=== PATIENT | female | born 1990 | race African-American/Black ===

== ENCOUNTER 2023-09-01 08:03 | Emergency (ER) | payer SELFPAY ==
[2023-09-01 08:06] VITALS: BP 122/79; BMI 39.5
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
[2023-09-01 09:49] VITALS: BP 132/80
== END 2023-09-01 10:09 | disposition home or self-care (01) ==
LOC: EMR 08:03
PROVIDERS: EMERGENCY PHYSICIAN Emergency Medicine
DX: S29.9XXA Unspecified injury of thorax, initial encounter (principal); M54.6 Pain in thoracic spine; V43.52XA Car driver injured in collision with other type car in traffic accident, initial encounter; Y92.410 Unspecified street and highway as the place of occurrence of the external cause
CPT/HCPCS: 99283; 71111